=== PATIENT | male | born 1985 | race Caucasian/White ===

== ENCOUNTER 2020-11-21 10:39 | Emergency (ER) | payer OTHER, SELFPAY ==
[2020-11-21 10:40] VITALS: BP 144/109; PULSE 111; RESP 16; TEMP 37.1; O2SAT 94; BMI 36.1
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
[2020-11-21 12:16] VITALS: BP 135/97; PULSE 71; RESP 15
== END 2020-11-21 12:17 | disposition home or self-care (01) ==
PROVIDERS: Emergency Provider Student in an Organized Health Care Education/Training Program; PCP Family Medicine
DX: S06.0X0A Concussion without loss of consciousness, initial encounter (principal); Y04.8XXA Assault by other bodily force, initial encounter; Y93.89 Activity, other specified; Y92.9 Unspecified place or not applicable; Y99.0 Civilian activity done for income or pay; F17.200 Nicotine dependence, unspecified, uncomplicated
CPT/HCPCS: 70450; 99282